=== PATIENT | female | born 1930 | race Caucasian/White ===

== ENCOUNTER → 2017-04-29 | Outpatient (CLI) | payer OTHER ==
[~2017-04-29] MED LIST: ACT35 PO; CALCTAB5 PO; CMDUNK; MULT-506 PO; VYTUNK
[2017-04-29 16:41] LABS: URINE APPEARANCE CLEAR (CLEAR); URINE BILIRUBIN NEG (NEG); URINE COLOR YELLOW; URINE NITRITE NEG (NEG); URINE SPECIFIC GRAVITY 1.026 (1.000-1.030); UROBILINOGEN NEG (NEG); ZZUR CULT IF INDIC CLEAN CATCH NO
[2017-04-29 16:49] LABS: MANUAL MICROSCOPIC REQUIRED? NO; REVIEW REQ? NO
[2017-04-29 17:08] LABS: ALT/SGPT 20 U/L (12-78); AST/SGOT 17 U/L (15-37); BLOOD UREA NITROGEN 18 mg/dl (7-18); BUN/CREATININE RATIO 24.7 (10-20); CALCIUM 9.2 mg/dl (8.5-10.1); CARBON DIOXIDE 30 mmol/L (21-32); CHLORIDE 107 mmol/L (98-107); CHOLESTEROL 243 mg/dl (0-200); CREATININE 0.74 mg/dl (0.60-1.20); GLUCOSE 73 mg/dl (70-99); POTASSIUM 3.9 mmol/L (3.5-5.1); SODIUM 141 mmol/L (136-145); TRIGLYCERIDES 143 mg/dl (0-150); VERY LOW DENSITY LIPOPROT CALC 29 mg/dl
[2017-04-29 17:12] LABS: ALB/GLOB RATIO 1.1 (0.9-2); ALKALINE PHOSPHATASE 69 U/L (45-117); CHOLESTEROL/HDL RATIO 2.6; HDL CHOLESTEROL 95 mg/dl; LDL CHOLESTEROL CALCULATED 119 mg/dl
== END | disposition home or self-care (01) ==
LOC: C.LAB1850 15:07
PROVIDERS: ATTEND Internal Medicine
DX: E78.5 Hyperlipidemia, unspecified (principal); R31.9 Hematuria, unspecified

== ENCOUNTER → 2017-05-09 | Outpatient (CLI) | payer OTHER | END | disposition home or self-care (01) | LOC: C.LAB1850 12:10 | PROVIDERS: ATTEND Internal Medicine | DX: R31.9 Hematuria, unspecified (principal) ==

== ENCOUNTER → 2017-05-23 | Outpatient (CLI) | payer OTHER | END | disposition home or self-care (01) | LOC: C.PATHSPEC 17:10 | PROVIDERS: ATTEND Nurse Practitioner Adult Health | DX: R31.29 Other microscopic hematuria (principal) ==

== ENCOUNTER → 2017-05-25 | Outpatient (CLI) | payer OTHER ==
--- NOTE | 2017-05-25 10:39 | DIAGNOSTIC IMAGING REPORT ---
KUB HISTORY: R31.29 [id number] [id number] COMPARISON: Chest and abdominal series 06/06/2014. FINDINGS: The bowel gas pattern is unremarkable. There are no dilated loops of small bowel to suggest an obstruction. No renal calculi. No ureteral calculi. Calcifications in the deep pelvis likely represent phleboliths. These remain unchanged. No pneumoperitoneum or pneumatosis. IMPRESSION: No renal or ureteral stones. Electronically signed by: Gamaliel Hebert M.D. 05/25/2017 10:38 AM Dictated Date/Time: 05/25/2017 10:33 AM
--- NOTE | 2017-05-25 11:04 | DIAGNOSTIC IMAGING REPORT ---
EXAMINATION: RENAL ULTRASOUND CLINICAL HISTORY: R31.29 KprmxhuqltaphdI25.0 nephrolithiasis COMPARISON STUDY: MRI dated 06/18/2016 FINDINGS: The right kidney measures 10.0. The left kidney measures 9.9. There is no evidence of hydronephrosis. There are multiple left renal cysts measuring up to 3.7 cm in diameter. No solid renal masses are visualized. No bladder abnormalities are visualized. Bilateral ureteral jets were visualized. Incidental note is made of a septated cyst within the right hepatic lobe. There is also a 2 cm left adnexal cyst. IMPRESSION : 1. Multiple left renal cysts measuring up to 3.7 cm 2. No evidence of obstruction 3. No solid renal masses identified 4. Right lobe hepatic cyst 5. 2 cm left adnexal cyst Electronically signed by: Israel Jara M.D. 05/25/2017 11:03 AM Dictated Date/Time: 05/25/2017 11:01 AM
== END | disposition home or self-care (01) ==
LOC: C.ULTR 09:50
PROVIDERS: ATTEND Nurse Practitioner Adult Health
DX: R31.29 Other microscopic hematuria (principal); N20.0 Calculus of kidney

== ENCOUNTER → 2017-06-21 | Outpatient (CLI) | payer OTHER ==
[2017-06-21 14:42] LABS: BASO % 0.5 %; BASO ABS # 0.03 K/uL (0-0.2); COMPLETE YES; HEMATOCRIT 42.7 % (37-47); IG% 0.2 %; LYMPH % 22.8 %; LYMPH ABS # 1.36 K/uL (1.2-3.4); MEAN CELL VOLUME 99.5 fL (80-100); MEAN CORPUSCULAR HEMOGLOBIN 32.2 pg (25-34); MEAN CORPUSCULAR HGB CONC 32.3 g/dl (32-36); MEAN PLATELET VOLUME 10.3 fL (7.4-10.4); MONO % 13.3 %; NEUT % 62.2 %; PLATELET COUNT 241 K/uL (130-400); RED BLOOD COUNT 4.29 M/uL (4.2-5.4); WHITE BLOOD COUNT 5.96 K/uL (4.8-10.8)
[2017-06-21 15:02] LABS: ALT/SGPT 14 U/L (12-78); BLOOD UREA NITROGEN 16 mg/dl (7-18); BUN/CREATININE RATIO 22.2 (10-20); CALCIUM 9.4 mg/dl (8.5-10.1); CARBON DIOXIDE 30 mmol/L (21-32); CHLORIDE 106 mmol/L (98-107); CREATININE 0.72 mg/dl (0.60-1.20); GLUCOSE 77 mg/dl (70-99); MAGNESIUM 2.3 mg/dl (1.8-2.4); POTASSIUM 4.2 mmol/L (3.5-5.1); SODIUM 140 mmol/L (136-145)
[2017-06-21 15:05] LABS: ALKALINE PHOSPHATASE 69 U/L (45-117); AST/SGOT 17 U/L (15-37)
[2017-06-21 17:48] LABS: LYME DISEASE AB IGG NEG (NEG); LYME DISEASE AB IGM NEG (NEG)
== END | disposition home or self-care (01) ==
LOC: C.LAB1850 12:37
PROVIDERS: ATTEND Internal Medicine
DX: T14.8 Other injury of unspecified body region (principal); W57.XXXA Bitten or stung by nonvenomous insect and other nonvenomous arthropods, initial encounter; E55.9 Vitamin D deficiency, unspecified; E53.8 Deficiency of other specified B group vitamins; M62.89 Other specified disorders of muscle

== ENCOUNTER 2018-02-16 06:21 | Inpatient (IN) | payer OTHER ==
[2018-01-10 11:20] VITALS: BMI 23.0
--- NOTE | 2018-01-10 12:08 | PAT Medication Instructions ---
Service Date Jan 10, 2018. Current Home Medication List Acetaminophen (Tylenol Arthritis Ext Rel), 650 MG PO Q8H Aspirin (Aspirin Ec), 81 MG PO HS Cholecalciferol (Vitamin D3), 1 CAP PO QPM Coenzyme Q10 (Ubidecarenone) (Co Q10), 2 CAP PO QPM Cyanocobalamin (Vitamin B12), 1 TAB SL QPM Fish Oil ([place]-3), 1 CAP PO QPM Medication Instructions For Your Scheduled Surgery - Hold the following medications 2 weeks prior to surgery--stop taking on : Coenzyme Q10 (Ubidecarenone) (Co Q10), 2 CAP PO QPM Fish Oil ([place]-3), 1 CAP PO QPM - Take the following medications if needed the morning of surgery: Acetaminophen (Tylenol Arthritis Ext Rel), 650 MG PO Q8H (can be taken up to four hours before surgery) - Take the following medications as scheduled the night before surgery: Acetaminophen (Tylenol Arthritis Ext Rel), 650 MG PO Q8H (if needed) Aspirin (Aspirin Ec), 81 MG PO HS Cholecalciferol (Vitamin D3), 1 CAP PO QPM Cyanocobalamin (Vitamin B12), 1 TAB SL QPM If you have any questions please call us at [phone] or [phone] or [phone]
--- NOTE | 2018-01-10 13:03 | DIAGNOSTIC IMAGING REPORT ---
CHEST 2 VIEWS ROUTINE CLINICAL HISTORY: 87 years-old Female presenting with preoperative assessment. TECHNIQUE: PA and lateral views of the chest were obtained. COMPARISON: 06/06/2014. FINDINGS: Atherosclerosis of the aortic arch. Cardiac silhouette normal in size. Coronary artery calcification or coronary stents noted. Possible mitral annular calcification. Lungs and pleural spaces clear. Degenerative changes of the thoracic spine. Mild compression deformity of a lower thoracic vertebral body suggesting underlying osteopenia. Deformity and subluxation of the right humeral head, which may be chronic. Upper abdomen normal. IMPRESSION: 1. No acute cardiopulmonary disease. Electronically signed by: Dain Montoya M.D. 01/10/2018 1:02 PM Dictated Date/Time: 01/10/2018 1:00 PM
[2018-01-10 13:39] LABS: BASO % 0.7 %; BASO ABS # 0.04 K/uL (0-0.2); EOS % 1.4 %; EOS ABS # 0.08 K/uL (0-0.5); HEMATOCRIT 39.8 % (37-47); HEMOGLOBIN 13.2 g/dL (12.0-16.0); LYMPH % 29.3 %; LYMPH ABS # 1.67 K/uL (1.2-3.4); MEAN CELL VOLUME 98.3 fL (80-100); MEAN CORPUSCULAR HEMOGLOBIN 32.6 pg (25-34); MEAN CORPUSCULAR HGB CONC 33.2 g/dl (32-36); MEAN PLATELET VOLUME 9.7 fL (7.4-10.4); MONO % 10.4 %; MONO ABS # 0.59 K/uL (0.11-0.59); NEUT % 58.2 %; NEUT ABS # 3.32 K/uL (1.4-6.5); PLATELET COUNT 248 K/uL (130-400); RED CELL DISTRIBUTION WIDTH CV 12.9 % (11.5-14.5); RED CELL DISTRIBUTION WIDTH SD 46.5 fL (36.4-46.3)
[2018-01-10 13:52] LABS: PTT PATIENT 27.3 SECONDS (21.0-31.0)
[2018-01-10 14:14] LABS: CALCIUM 9.2 mg/dl (8.5-10.1); CREATININE 0.79 mg/dl (0.60-1.20); POTASSIUM 4.5 mmol/L (3.5-5.1)
--- NOTE | 2018-02-11 20:04 | HISTORY & PHYSICAL EXAMINATION ---
DATE OF ADMISSION: 02/16/2018 CHIEF COMPLAINT: Persistent left knee pain and discomfort. HISTORY OF PRESENT ILLNESS: An 87-year-old female who now presents for surgical treatment of her left knee. She has got a long history of left knee pain and discomfort followed by Dr. Huerta up to this point. She has had multiple steroid shots and gel injections, which really do help at all anymore. Pain is mostly on the medial side of her knee. It is increased with weightbearing. The more she walks, the more it hurts. It is really starting to affect her quality of life and ability to be active. She would like to have her left hip fixed. The patient does have an atrial septal aneurysm, followed by Dr. Kramer. He has cleared her for surgery and do not think this has much significance, or provides any significant risk for her surgery. PAST MEDICAL HISTORY: 1. Mild mitral valve prolapse. 2. Atrial septal aneurysm. 3. Gastroesophageal reflux disease. PAST SURGICAL HISTORY: 1. Carpal tunnel release x2. 2. Cataract surgery. ALLERGIES: None. CURRENT MEDICINES: 1. Aspirin 81 mg a day. 2. Coenzyme Q. 3. Whick 3. 4. Vitamin B12. 5. Vitamin D. SOCIAL HISTORY: An 87-year-old female. She is . Lives alone. She is interested in going to [facility] or the [facility] postoperatively. FAMILY HISTORY: Noncontributory. REVIEW OF SYSTEMS: Negative for diabetes, neurologic problems, vascular and bleeding disorders. Denies any current chest pain or shortness of breath. She does have this atrial aneurysm, which I do not think is of much cardiac significance. PHYSICAL EXAMINATION: GENERAL: Pleasant, frail, spry elderly female who looks to be in excellent health. HEENT: Benign. NECK: Supple. No lymphadenopathy. LUNGS: Clear to auscultation. HEART: Has a regular rate and rhythm. ABDOMEN: Soft, nontender, nondistended. EXTREMITIES: Grossly neurovascularly intact except as follows: Examination of the left leg reveals patient walks independently. She does limp on his left side. She has got varus alignment with a varus thrust with weightbearing. She has bony hypertrophy medially. Range of motion 5-120. X-RAYS: X-rays of the left knee reviewed. Shows advanced left knee DJD. She has complete loss of her medial joint space. She has subchondral sclerosis. She has got osteophytes off the medial femoral condyle and medial tibial plateau. ASSESSMENT: An 87-year-old female with advanced left knee degenerative joint disease and has become less responsive to conservative care. It is really affecting her quality of life. She would like to have her left knee replaced. PLAN: We are going to take her to the operating room and do a left total knee replacement. The risks and benefits were explained to this patient including but not limited to DVT, PE, , infection, neurological injury, vascular injury, bleeding problem, pain, limited range of motion, stiffness, failure to relieve symptoms, incomplete relief of symptoms, need for pressor in the future, fracture, leg length inequality, nerve palsy, etc. The patient understands and desires to proceed. Informed consent was obtained. As far as discharge plans, she is hoping [facility].
[~2018-02-16] VITALS: Ht 149.9 cm; Wt 52.9 kg
[2018-02-16] VITALS (10 sets, daily range): BP systolic 115–165; BP diastolic 51–89; PULSE 62–88; TEMP 36.4–36.8; O2SAT 95–99; Ht 149.9 cm; Wt 52.9 kg
[~2018-02-16 06:21] MED LIST changes: +ACET1TAB84 PO; +ACETAMINOPHEN 500 MG TAB PO SCH; -ACT35 PO; +ASPI81TA28 PO; +BUPIVACAINE LIPOSOME 266 MG, BUPIVACAINE/EPINEPHRINE INJ 50 ML, SODIUM CHLORIDE 0.9% PF... INFIL SCH; -CALCTAB5 PO; +CEFAZOLIN 2000MG IV PUSH 15 ML IV SCH; +CHOL2000 PO; -CMDUNK; +COEN1CAP28 PO; +CYAN100020 SL; +FAMOTIDINE 20 MG TAB PO SCH; +GABAPENTIN 300 MG CAP PO SCH; +LACTATED RINGER'S 1000ML 1,000 ML IV SCH; +LACTATED RINGER'S 1000ML 500 ML IV SCH; +LACTATED RINGER'S 1000ML IV SCH; +METOCLOPRAMIDE HCL 10 MG TAB PO SCH; -MULT-506 PO; +OMEG10007 PO; +TRANEXAMIC ACID INJ 1,000 MG x 1 Bag Intra-Op IV SCH; -VYTUNK
--- NOTE | 2018-02-16 06:44 | History & Physical Bridge Note ---
H&P Re-Evaluation Bridge Note: I have examined the patient, reviewed the History & Physical and in the interval since the performance of the History & Physical I have noted the following changes of clinical significance: No changes noted
[2018-02-16] MEDS ORDERED: MIDAZOLAM HCL 1 MG/ML 2ML VIAL ONE (08:39)
[2018-02-16] MEDS ORDERED: FENTANYL CITRATE INJ 50 MCG/1 ML 2 ML VIAL ONE (08:39)
[2018-02-16] MEDS ORDERED: EpINEphrine INJ 1MG/ML AMP 1 MG/ML AMP ONE (08:50)
[2018-02-16] MEDS ORDERED: BACITRACIN 50000 UNIT VIAL ONE (08:50)
[2018-02-16] MEDS ORDERED: BUPIVACAINE LIPOSOME 1/3% 266 MG/20 ML VIAL INFIL ONE (08:50)
[2018-02-16] MEDS ORDERED: SODIUM CHLORIDE 0.9% PF 50 ML VIAL ONE (08:50)
[2018-02-16] MEDS ORDERED: BUPIVACAINE 0.25% 30 ML VIAL ONE (08:50)
--- NOTE | 2018-02-16 09:11 | Anesthesiology Progress Note ---
Anesthesia Post Op Note Date & Time Feb 16, 2018 at 09:11 Vital Signs Pain Intensity: 0 Vital Signs Past 12 Hours Date Time Temp Pulse Resp B/P (MAP) Pulse Ox O2 Delivery O2 Flow Rate FiO2 02/16/18 06:50 36.4 69 18 130/82 99 Room Air Notes Mental Status: alert / awake / arousable, participated in evaluation Pt Amnestic to Procedure: Yes Nausea / Vomiting: adequately controlled Pain: adequately controlled Airway Patency, RR, SpO2: stable & adequate BP & HR: stable & adequate Hydration State: stable & adequate Neuraxial Anesthesia: was administered, sensory block is resolving Anesthetic Complications: no major complications apparent
[2018-02-16] MEDS ORDERED: PROPOFOL IV EMULSION 10 MG/ML 20 ML VIAL IV ONE (10:01)
[2018-02-16] MEDS ORDERED: ONDANSETRON INJ 2 MG/ML 2 ML VIAL IV PRN ×2 (10:15→11:00)
[2018-02-16] MEDS ORDERED: EpHEDrine SULFATE INJ 50 MG/ML AMP IV PRN (10:15)
[2018-02-16] MEDS ORDERED: FENTANYL CITRATE INJ 50 MCG/1 ML 2 ML VIAL IV PRN (10:15)
[2018-02-16] MEDS ORDERED: ATROPINE SULFATE 0.1 MG/ML 5ML SYR IV PRN (10:15)
--- NOTE | 2018-02-16 10:53 | [facility] Post Operative Brief Note ---
Immediate Operative Summary Operative Date Feb 16, 2018. Pre-Operative Diagnosis Advanced left knee degenerative joint disease Post-Operative Diagnosis Advanced left knee degenerative joint disease Procedure(s) Performed Left total knee arthroplasty, cemented Surgeon Dr. Moon Printer Machine Surgeon(s) Saravanan Sagastuem PA-C Estimated Blood Loss 50cc Findings Consistent with Post-Op Diagnosis Fluids (cc crystalloids) 1500 cc Specimens A: Left knee bone and tissue Drains None Anesthesia Type MAC Spinal Regional Complication(s) none Disposition Accompanied Pt To Recover: no Disposition: Recovery Room / PACU
[2018-02-16] MEDS ORDERED: ZOLPIDEM TARTRATE 5 MG TAB PO PRN (11:00)
[2018-02-16] MEDS ORDERED: MAGNESIUM HYDROXIDE SUSP 30 ML UDC PO PRN (11:00)
[2018-02-16] MEDS ORDERED: ALUMINUM/MAGNESIUM/SIMETH (MAALOX MAX) 30 ML UDC PO PRN (11:00)
[2018-02-16] MEDS ORDERED: HYDROmorphone INJ 0.5 MG/0.5 ML SYR IV PRN (11:00)
[2018-02-16] MEDS ORDERED: METOCLOPRAMIDE HCL INJ 5 MG/ML 2 ML VIAL IV PRN (11:00)
[2018-02-16] MEDS ORDERED: TRAMADOL HCL 50 MG TAB PO PRN (11:00)
[2018-02-16] MEDS ORDERED: SILVER SULFADIAZINE 1% CR 50 GM JAR EXT PRN (11:00)
[2018-02-16] MEDS ORDERED: CEFAZOLIN IV 1,000 MG in DEXTROSE 5% 50ML 50 ML IV SCH (11:00)
[2018-02-16] MEDS ORDERED: BISACODYL 10 MG SUPP PR PRN (11:00)
--- NOTE | 2018-02-16 11:36 | DIAGNOSTIC IMAGING REPORT ---
L KNEE 1 OR 2 VIEWS ROUTINE CLINICAL HISTORY: Degenerative arthritis COMPARISON: February 11, 2018 DISCUSSION: There are postsurgical changes of a total left knee arthroplasty and patellar resurfacing. The femoral tibial components appear well seated. There are overlying skin funmi. There is air within soft tissues consistent with history of recent surgery. IMPRESSION: Postsurgical changes of a total left knee arthroplasty Electronically signed by: Israel Jara M.D. 02/16/2018 11:35 AM Dictated Date/Time: 02/16/2018 11:34 AM
--- NOTE | 2018-02-16 11:45 | OPERATIVE REPORT ---
DATE OF OPERATION: 02/16/2018 SURGEON: Chester Moon MD NETWORK ADMINISTRATOR: HALEY Mcknight. PREOPERATIVE DIAGNOSIS: Left knee degenerative joint disease. POSTOPERATIVE DIAGNOSIS: Same. PROCEDURE PERFORMED: Left cemented posterior stabilized total knee arthroplasty. COMPLICATIONS: None. ESTIMATED BLOOD LOSS: 50 mL. FLUID REPLACEMENT: 1500 mL crystalloid fluid replacement. ANESTHESIA: Spinal with adductor canal block. DRAINS: None. SPECIMENS: Left knee sent for pathology. OPERATIVE INDICATIONS: The patient is an 87-year-old very active an independent female, who has had a long history of bilateral knee pain and discomfort, left side quite a bit worse than the right. She has been through extensive conservative treatment over the years and this has become less responsive to conservative care. X-rays show advanced DJD. She elected to do total knee arthroplasty. OPERATIVE FINDINGS: Operative findings revealed advanced left knee DJD. She has extensive and diffuse eburnation of the medial femoral condyle and medial tibial plateau with grade 4 [id number] disease and osteophytes particularly in the medial compartment. She had a large knee joint effusion and fixed varus deformity to her knee. OPERATIVE IMPLANTS: Operative implants consisted of: 1. Biomet Vanguard size 62.5 left posterior stabilized femoral component. 2. Biomet size 63 tibial tray. 3. A 10 mm posterior stabilized polyethylene insert. 4. A 28 x 8 all poly patella. OPERATIVE PROCEDURE: The patient was taken to the operating room, identified and placed on the operating table in supine position. All contact areas were appropriately padded. IV antibiotics followed by anesthesia team. A spinal anesthetic and adductor canal block had been provided in the holding area. Murray catheter was placed in sterile fashion. A left thigh tourniquet was then placed and left lower extremity was then prepped and draped in usual sterile fashion. Left leg was elevated examined Esmarch and tourniquet was placed at 300 mmHg. An anterior approach to the left knee was then performed through a longitudinal incision centered over the patella. Sharp dissection was carried through subcutaneous tissues down to the level of the extensor mechanism. Medial parapatellar arthrotomy incision was made. Some subperiosteal dissection was carried out medially. The fat pad resected from beneath the patellar tendon. Lateral patellofemoral ligament was released. Patella was everted, and the knee was flexed. The osteophytes were taken off the distal femur. The ACL was chronically torn. The PCL was released from the distal femur. The tibia subluxated anteriorly. The external tibial alignment jig was then placed on the anterior face of the tibia and adjusted 14 mm medially. Proximal tibial cut was made to move about a millimeter of bone from the most deficient aspect of the posteromedial tibial plateau. Some osteophytes were taken off medial and posteromedially. Tibia sized to a size 63. Attention was then drawn to the femur. The distal femur was entered with a sharp drill bit. Intramedullary canal was suctioned. A left 5 degree valgus cutting guide was placed. Distal femoral cutting block was pinned in place. Distal femoral cut was made to take an additional 3 mm of bone off distal femur. The femur was then sized to a size 62.5. We downsized this quite a bit and even with this the medial/lateral dimensions were a bit big for this patient. I did feel like I could downsize it any further. The AP cutting block was then pinned parallel to the epicondylar axis, which was 5 degrees of external rotation. The anterior cut, anterior chamfer cut, posterior cut, posterior chamfer cuts were made. A box cutting guide was placed and adjusted slightly lateral. The box cut was made. The knee was flexed. The remnants of the medial and lateral meniscus were excised. The osteophytes were taken off the posterior aspect of the femur. A trial femoral component was placed. Tibial tray was pinned in maximum external rotation. The drill and stem punch were used to create defect in proximal tibia for the tibial tray. The knee was then trialed and the 10 mm insert fit most appropriately. Attention was then drawn to the patella. The patella was cleaned of all soft tissues. Patellar thickness measured 20 mm in thickness and cut down to 13. It was sized to a size 28 patella. Locals were drilled for a 28 patella. Lateral osteophyte was removed. Patella button was placed. Knee was taken through range of motion and the patella tracked nicely with no thumbs test. Attention was then drawn toward placement of permanent components. All trial components were removed. A bone plug was placed in the distal femur to limit blood loss. A double batch of Palacos G cement was mixed. A Biomet Vanguard size 62.5 left posterior stabilized femoral component, size 63 tibial tray, a 10 mm posterior stabilized polyethylene insert, and a 28 x 8 all poly patella then cemented in place. Knee was brought into full extension until cement hardened. A final cement check was then performed. Pericapsular tissues were injected with a total of 100 mL of a combination of 20 mL of Exparel, 30 mL of normal saline, 50 mL of 0.25% Marcaine with epinephrine. The patient did receive 1 gram of tranexamic acid. The tourniquet was then let down for final tourniquet time of 61 minutes. Hemostasis was assured with use of electrocautery. The wound was once again irrigated. The extensor mechanism was then closed with a combination of #1 PDS suture and #1 Vicryl suture in a [id number] fashion. Extensor mechanism was checked and found to be intact. The subcutaneous tissue then closed with #2 Dexon suture in a buried interrupted fashion. The skin was closed with skin funmi. Leg was then cleaned, dried and a sterile dressing of Xeroform, 4 x 4, sterile cast padding and Alberto bandage were applied. The patient then transferred to the recovery room in stable condition. The patient tolerated the procedure well with no complication. All needle and sponge counts were correct at the end of the operation. I attest to the content of the Intraoperative Record and any orders documented therein. Any exception s are noted below.
[2018-02-16] MEDS: ACETAMINOPHEN 500 MG TAB PO SCH ×2 (13:29→21:26)
[2018-02-16] MEDS: KETOROLAC TROMETHAMINE 15 MG/ML VIAL IV. SCH ×2 (13:29→21:17)
[2018-02-16] MEDS: D5W AND 1/2NSS + 20MEQ KCL 1,000 ML IV SCH ×2 (13:29→23:13)
--- NOTE | 2018-02-16 14:28 | PROGRESS NOTE ---
DATE: 02/16/2018 SUBJECTIVE: An 87-year-old female postop from a left knee replacement. She is doing well. Fairly minimal pain so far. No chest pain or shortness of breath. Not feeling dizzy or lightheaded. OBJECTIVE: VITAL SIGNS: Temperature is 36.7. Vital signs stable. GENERAL: Reveals a healthy pleasant elderly female. Patient is sitting up in bed and eating and talking to her daughters. She looks comfortable. LUNGS: Clear to auscultation. HEART: Regular rate and rhythm. ABDOMEN: Soft, nontender, nondistended. EXTREMITIES: Grossly neurovascularly intact except as follows: Examination of left lower extremity reveals the leg to be well aligned. Dressing is clean, dry and intact. She can dorsiflex and plantarflex her foot appropriately. She has got good refill. She is neurologically intact. X-RAYS: X-ray of the left knee from recovery room reviewed. It shows a left cemented posterior stabilized total knee arthroplasty. Components looked to be in good position. No signs of problems. ASSESSMENT: An 87-year-old white female postop from a left knee replacement, doing well. Pain is controlled. She is neurologically intact. PLAN: 1. DVT prophylaxis including thigh-high TEDs, SCDs, and aspirin twice a day. 2. PT/OT. Weight bear as tolerated. Left total knee protocol. 3. Pain control, doing well with current pain regimen. We are going to try and limit narcotics to avoid confusion. 4. IV antibiotics x24 hours. 5. Disposition: She is hoping to be discharged to [facility] for a brief rehab stay. If not [facility], she can prefer the [facility] for [facility].
[2018-02-16] MEDS ORDERED: TRANEXAMIC ACID INJ 1,000 MG in SODIUM CHLORIDE 0.9% 100ML 100 ML IV SCH (17:00)
[2018-02-16] MEDS: CEFAZOLIN IV 1,000 MG in SYRINGE 0 ML IV SCH (17:37)
[2018-02-16] MEDS: FERROUS GLUCONATE 324 MG TAB PO SCH (17:55)
[2018-02-16] MEDS: OMEGA-3 (PURIFIED FISH OIL) 1 GM CAP PO SCH (21:00)
[2018-02-16] MEDS: CYANOCOBALAMIN 500 MCG TAB (VIT B-12) PO SCH (21:00)
[2018-02-16] MEDS: CHOLECALCIFEROL 1000 INTER.UNIT TAB PO SCH (21:00)
[2018-02-16] MEDS: SENNA 8.6 MG TAB PO SCH (21:00)
[2018-02-16] MEDS ORDERED: NON-FORMULARY MEDICATION (Coenzyme Q10 (Ubidecarenone) (Co Q10) 2 CAP) PO SCH (21:00)
[2018-02-16] MEDS: DOCUSATE SODIUM 100 MG CAP PO SCH (21:16)
[2018-02-16] MEDS: ASPIRIN 81 MG ECTAB PO SCH (21:16)
[2018-02-17] VITALS (9 sets, daily range): BP systolic 107–152; BP diastolic 54–70; PULSE 62–75; TEMP 36.7–37.1; O2SAT 94–99
[2018-02-17] MEDS: CEFAZOLIN IV 1,000 MG in SYRINGE 0 ML IV SCH (01:31)
[2018-02-17] MEDS: KETOROLAC TROMETHAMINE 15 MG/ML VIAL IV. SCH ×4 (01:31→19:28)
[2018-02-17] MEDS: ACETAMINOPHEN 500 MG TAB PO SCH ×3 (05:28→21:41)
[2018-02-17 07:11] LABS: HEMATOCRIT 31.6 % (37-47); HEMOGLOBIN 10.6 g/dL (12.0-16.0); MEAN CELL VOLUME 96.6 fL (80-100); MEAN CORPUSCULAR HEMOGLOBIN 32.4 pg (25-34); MEAN CORPUSCULAR HGB CONC 33.5 g/dl (32-36); MEAN PLATELET VOLUME 9.7 fL (7.4-10.4); PLATELET COUNT 171 K/uL (130-400); RED CELL DISTRIBUTION WIDTH CV 12.2 % (11.5-14.5); RED CELL DISTRIBUTION WIDTH SD 43.5 fL (36.4-46.3); WHITE BLOOD COUNT 8.19 K/uL (4.8-10.8)
--- NOTE | 2018-02-17 07:32 | Anesthesiology Progress Note ---
Anesthesia Post Op Note Date & Time Feb 17, 2018 at 07:31 Vital Signs Pain Intensity: 0.0 Vital Signs Past 12 Hours Date Time Temp Pulse Resp B/P (MAP) Pulse Ox O2 Delivery O2 Flow Rate FiO2 02/17/18 03:47 36.8 66 16 120/68 (85) 96 Room Air 02/16/18 23:15 Room Air 02/16/18 22:55 36.8 68 16 115/51 (72) 95 Room Air Notes Mental Status: alert / awake / arousable, participated in evaluation Pt Amnestic to Procedure: Yes Nausea / Vomiting: adequately controlled Pain: adequately controlled Airway Patency, RR, SpO2: stable & adequate BP & HR: stable & adequate Hydration State: stable & adequate Neuraxial Anesthesia: was administered, sensory block resolved Anesthetic Complications: no major complications apparent
[2018-02-17 07:42] LABS: CALCIUM 8.1 mg/dl (8.5-10.1); CREATININE 0.8 mg/dl (0.60-1.20); POTASSIUM 3.6 mmol/L (3.5-5.1)
[2018-02-17] MEDS: FERROUS GLUCONATE 324 MG TAB PO SCH ×3 (08:22→17:52)
[2018-02-17] MEDS: MULTIVITAMIN TAB PO SCH (08:22)
[2018-02-17] MEDS: DOCUSATE SODIUM 100 MG CAP PO SCH ×2 (08:23→20:37)
[2018-02-17] MEDS: ASPIRIN 81 MG ECTAB PO SCH ×2 (08:23→20:47)
[2018-02-17] MEDS: PANTOprazole SOD 40 MG TAB PO SCH (08:24)
[2018-02-17] MEDS: D5W AND 1/2NSS + 20MEQ KCL 1,000 ML IV SCH (08:24)
--- NOTE | 2018-02-17 08:32 | PROGRESS NOTE ---
DATE: 02/17/2018 SUBJECTIVE: This is an 87-year-old white female postop day 1 from a left knee replacement. She is doing pretty well. Pain is controlled. No chest pain or shortness of breath. Not feeling dizzy or lightheaded. OBJECTIVE: VITAL SIGNS: Temperature is 36.8. Vital signs stable. PHYSICAL EXAMINATION: GENERAL: Physical examination reveals shows a pleasant elderly female. She is sitting up in bed, looks pretty comfortable. She is awake, alert, and oriented. EXTREMITIES: Examination of the left leg reveals the dressing to be clean, dry, and intact. She can dorsiflex and plantarflex her foot appropriately. She is neurologically intact. LABORATORY DATA: Labs are pending. ASSESSMENT: This is an 87-year-old female postop day 1 from a left knee replacement, doing reasonably well. Pain is controlled. She is neurologically intact. PLAN: 1. DVT prophylaxis including thigh-high TEDs, SCDs, and aspirin twice a day. 2. PT/OT. Weightbear as tolerated. Left total knee protocol. 3. Pain control. Doing reasonably well with current pain regimen. 4. Disposition. She is hoping to be discharged to [facility] for a brief rehab stay. If does get into [facility], then she will look into the [facility].
[2018-02-17] MEDS ORDERED: NURSING VERBAL MED ORDER ONE (14:45)
[2018-02-17] MEDS: LOPERAMIDE HCL 2 MG CAP PO PRN ×3 (15:03→20:47)
[2018-02-17] MEDS: SENNA 8.6 MG TAB PO SCH (20:37)
[2018-02-17] MEDS: CHOLECALCIFEROL 1000 INTER.UNIT TAB PO SCH (20:43)
[2018-02-17] MEDS: CYANOCOBALAMIN 500 MCG TAB (VIT B-12) PO SCH (20:43)
[2018-02-17] MEDS: OMEGA-3 (PURIFIED FISH OIL) 1 GM CAP PO SCH (20:43)
[2018-02-17] MEDS ORDERED: ASPI-320 PO (21:22)
[2018-02-17] MEDS ORDERED: ACET-24 PO (21:22)
[2018-02-17] MEDS ORDERED: FRRG PO (21:22)
[2018-02-17] MEDS ORDERED: ULT50X PO (21:22)
--- NOTE | 2018-02-17 21:26 | Discharge Instructions ---
Discharge Instructions Date of Service Feb 17, 2018. Admission Reason for Admission: Left Knee Degenerative Joint Disease Discharge Discharge Diagnosis / Problem: Left Knee Replacement Discharge Goals Goal(s): Decrease discomfort, Improve function, Increase independence, Improve disease control, Therapeutic intervention Activity Recommendations Activity Level: Assistance Required Therapies: Physical Therapy, Occupational Therapy Weightbearing Status: Left weightbearing . Additional Information Patient informed of condition: Yes Advance Directives: Yes DNR: No Level of Care: Acute Rehab Communicable Disease: No Prognosis: Improving Instructions / Follow-Up Instructions / Follow-Up ACTIVITY RECOMMENDATIONS: Physical Therapy: * You will go to physical therapy three times each week for four to six weeks after your surgery in order to regain your knee range of motion and to retrain your knee to work properly. * It is just as important to make sure you are getting your knee perfectly straight as it is to regain your knee bend. * Taking a pain pill an hour before therapy can help you have a more productive and comfortable therapy session. Home Exercise: * You were shown a series of exercises (heel props, heel slides, etc.) in the hospital. Do these exercises three to four times each day including the exercises you were shown in physical therapy. Walking: * Get up and walk several times each day. For the first four weeks, try not to stand or walk for more than one hour at a time. If you do stand or walk for more than one hour, you will not hurt anything, but your knee and leg will likely swell. * As you feel comfortable, you may change from the walker or crutches to a cane and then to independent walking. MEDICATIONS: New Medicine: * You will likely be taking one or more of these medications: 1. Tramadol - A quick and shorter-acting pain medication. Take one to two tablets every four to six hours to lessen your pain. 2. Iron Sulfate - Take two times each day for the month after surgery to help you replace the blood lost during surgery. 3. Aspirin - Thins your blood to lessen the chance of forming a blood clot. * The most common side effects of pain medicine and iron are nausea and constipation. If nausea or constipation is too much of a problem or if you have any questions about your new medicines or doses, call [facility] at . We will try to help you manage these issues. VERY IMPORTANT TO READ AND REVIEW" Pain: * The immediate post-operative period after knee replacement surgery is often quite painful. * You are given a prescription for pain medicine. You should take it, as directed, when you need it, especially before physical therapy and before going to bed. Pain that interferes with sleep is very common and can last several months. * You will likely need pain medicine for the first four to six weeks. It will not stop all of the pain. The pain will lessen and as you feel better, you may change to milder pain medicine such as Tylenol. * The most common side effects of pain medicine are nausea and constipation, so don't take more than you need. SPECIAL CARE INSTRUCTIONS: TEDs/Elastic Stockings: * The white elastic stockings help limit swelling and prevent blood clots from forming in your legs. The more you wear them, the more they work. * Wear them for six weeks after knee replacement surgery and four weeks after partial knee replacement. Prevention of Infection: * Take antibiotics one hour before any dental cleaning, dental work, urological procedure, gastrointestinal procedure or any invasive surgery in order to prevent your new joint from getting infected. * You may get the antibiotics from the doctor performing the procedure or you may call our office at before and we will call in a prescription to the pharmacy of your choice. Things to Watch For: * Drainage from the incision site that occurs more than one week after your surgery. * Severely increased knee/leg pain or swelling. * Increased redness at the incision site. * Fever above 102 degrees Fahrenheit. * Unusual chest pain or shortness of breath. * Unusual pain or burning with urination. Call [facility] at with any of the above problems or if you have any questions about your medicines or recovery. FOLLOW UP VISIT: Make an appointment to see your doctor for approximately two weeks after surgery for a progress check and staple removal by calling the office at . Current Hospital Diet Patient's current hospital diet: Regular Diet Discharge Diet Recommended Diet: Regular Diet Procedures Procedures Performed: Left total knee arthroplasty, cemented Pending Studies Studies pending at discharge: no Medical Emergencies . Who to Call and When: Medical Emergencies: If at any time you feel your situation is an emergency, please call [phone] immediately. . Non-Emergent Contact Non-Emergency issues call your: Surgeon . . "Provider Documentation" section prepared by Chester Moon. . Core Measure Problem Core Measures: None
[2018-02-18] MEDS: KETOROLAC TROMETHAMINE 15 MG/ML VIAL IV. SCH ×3 (02:08→07:46)
[2018-02-18] MEDS: ACETAMINOPHEN 500 MG TAB PO SCH (05:38)
[2018-02-18 07:00] VITALS: BP 110/66; PULSE 64; TEMP 36.8; O2SAT 94
--- NOTE | 2018-02-18 08:09 | PROGRESS NOTE ---
DATE: 02/18/2018 SUBJECTIVE: This is an 87-year-old white female postop day 2 from a left knee replacement. She is doing much better this morning. A couple of loose stool yesterday, but better this morning. Pain is controlled. No chest pain or shortness of breath. Not feeling dizzy or lightheaded. OBJECTIVE: VITAL SIGNS: Temperature 36.8. Vital signs stable. PHYSICAL EXAMINATION: GENERAL: Physical examination reveals a pleasant elderly female. I did wake her this morning. She looks comfortable. EXTREMITIES: Examination of the left leg reveals the incision to be clean, dry, and intact. No significant drainage. Fairly mild swelling. Calf is soft and supple. She is neurologically intact. ASSESSMENT: This is an 87-year-old female postop day 2 from a left knee replacement, doing pretty well. Pain is controlled. PLAN: 1. DVT prophylaxis including thigh-high TEDs, SCDs, and aspirin twice a day. 2. PT/OT. Weightbear as tolerated. Left total knee protocol. 3. Pain control, doing pretty well with current pain regimen. 4. Disposition. Plan to discharge to [facility] once medically stable and bed available.
[2018-02-18] MEDS: DOCUSATE SODIUM 100 MG CAP PO SCH (08:26)
[2018-02-18] MEDS: FERROUS GLUCONATE 324 MG TAB PO SCH (08:27)
[2018-02-18] MEDS: PANTOprazole SOD 40 MG TAB PO SCH (08:27)
[2018-02-18] MEDS: MULTIVITAMIN TAB PO SCH (08:27)
[2018-02-18] MEDS: ASPIRIN 81 MG ECTAB PO SCH (08:28)
[2018-02-18 10:20] VITALS: BP 110/66; PULSE 64; TEMP 36.8; O2SAT 94
== END 2018-02-18 11:06 | DRG 470 ==
LOC: C.ACU 06:21 → C.3E 06:30 → ENRESERV 11:58
PROVIDERS: ADMIT Orthopaedic Surgery Sports Medicine; ATTEND Orthopaedic Surgery Sports Medicine
PROC: 0SRD0J9 Replacement of Left Knee Joint with Synthetic Substitute, Cemented, Open Approach (ICD-10-PCS; principal; 2018-02-16 09:15)
DX: M17.12 Unilateral primary osteoarthritis, left knee (principal); K21.9 Gastro-esophageal reflux disease without esophagitis; Z79.82 Long term (current) use of aspirin; Z79.899 Other long term (current) drug therapy